=== PATIENT | female | born 1960 | race Caucasian/White ===

== ENCOUNTER 2022-09-02 15:11 | Emergency (ER) | payer OTHER ==
[~2022-09-02] VITALS: Ht 152.4 cm; Wt 83.9 kg
[2022-09-02 15:22] VITALS: BP 133/85
--- NOTE | 2022-09-02 15:28 | NUR ---
PT AMBULATED TO LOBBY. URINE COLLECTED
--- NOTE | 2022-09-02 15:30 | NUR ---
62/F WALKED IN C/O LEFT SIDED PELVIC PAIN ONSET 3 MONTHS AGO THAT GOT WORSE 2 DAYS AGO. PT DENIES FALL OR TRAUMA. PT STATES TAKING IBUPROFEN AND TYLENOL 2 DAYS AGO WITH MILD RELIEF. AAO4, AMBULATORY, VITALS STABLE PMH: ARTHRITIS
--- NOTE | 2022-09-02 16:17 | NUR ---
PT AMBULATED TO BED 5
--- NOTE | 2022-09-02 16:29 | NUR ---
Pt to CT by WC.
[2022-09-02 16:38] LABS: BILIRUBIN,URINE NEGATIVE (NEGATIVE); BLOOD, URINE TRACE-L (NEGATIVE); LEUKOCYTE ESTERASE ,URINE NEGATIVE (NEGATIVE); NITRITE, URINE NEGATIVE (NEGATIVE); UGLUCOSE NEGATIVE (NEGATIVE)
[2022-09-02 16:38] LABS: BASOPHILS % (AUTO) 0.3 % (0.0-2.0); EOSINOPHILS # (AUTO) 0.2 K/uL (0-0.4); EOSINOPHILS % (AUTO) 2.4 % (0.0-4.0); HEMATOCRIT 38.6 % (36-48); HEMOGLOBIN 12.7 g/dL (12.0-16.0); LYMPHOCYTES # (AUTO) 3.1 K/uL (2.5-16.5); LYMPHOCYTES % (AUTO) 43.1 % (20.5-51.1); MEAN CORPUSCULAR HEMOGLOBIN 29 pg (27-31); MEAN CORPUSCULAR HGB CONC 33 g/dL (33-37); MEAN CORPUSCULAR VOLUME 88.3 fL (80-94); MONOCYTES # (AUTO) 0.5 K/uL (0.8-1.0); MONOCYTES % (AUTO) 7.4 % (1.7-9.3); NEUTROPHILS # (AUTO) 3.3 K/uL (1.8-7.7); NEUTROPHILS % (AUTO) 46.8 % (42.2-75.2); PLATELET COUNT (AUTO) 347 K/uL (140-450); RED BLOOD CELL COUNT(AUTO) 4.37 MIL/uL (4.20-5.40); RED CELL DISTRIBUTION WIDTH 15.3 % (11.6-13.7); WHITE BLOOD COUNT (AUTO) 7.2 K/uL (4.8-10.8)
--- NOTE | 2022-09-02 16:40 | NUR ---
Patient returned from CT by WC
[2022-09-02 16:55] LABS: APPEARANCE,URINE CLEAR (CLEAR); COLOR,URINE YELLOW (YELLOW)
[2022-09-02 17:00] LABS: ALBUMIN 3.6 g/dL (3.4-5.0); ANION GAP 12.3 (8-16); CARBON DIOXIDE 26.7 mmol/L (21-32); CREATININE 0.7 mg/dL (0.6-1.3); TOTAL BILIRUBIN 0.3 mg/dL (0.0-1.0)
[2022-09-02 17:07] LABS: RBC,URINE 0-5 /HPF (0-5); WBC,URINE NONE SEEN /HPF (0-5)
[2022-09-02 18:19] VITALS: BP 142/73
--- NOTE | 2022-09-02 18:20 | NUR ---
Patient states left pelvic/hip pain 04/24, requesting medication. Dr. Salamanca made aware.
[2022-09-02] MEDS ORDERED: KETOROLAC 30 MG/ML VIAL IM ONE (18:25)
[2022-09-02] MEDS ORDERED: ACET-8905 PO (18:27)
[2022-09-02] MEDS ORDERED: KETOROLAC 30 MG/ML VIAL IVP ONE (18:40)
--- NOTE | 2022-09-02 19:02 | NUR ---
Patient discharged with v/s stable. Written and verbal after care instructions given and explained for Pelvic Pain (Female), Diverticulosis. Patient alert, oriented and verbalized understanding of instructions. Ambulatory with steady gait. All questions addressed prior to discharge. ID band removed. Patient advised to follow up with PMD. Rx of Hydrocodone/Acetaminophen given. Patient educated on indication of medication including possible reaction and side effects. Opportunity to ask questions provided and answered. Work note, copy of of US/CT, blood work, UA given to patient.
== END 2022-09-02 19:02 | disposition home or self-care (01) ==
LOC: MED 15:11
DX: K57.30 Diverticulosis of large intestine without perforation or abscess without bleeding (principal)
CPT/HCPCS: 36415; 74177; 76856; 80053; 81001; 83690; 85025; 96374; 99285; J1885; Q0092; Q9967

== ENCOUNTER 2022-10-31 13:45 | Emergency (ER) | payer OTHER ==
[~2022-10-31] VITALS: Ht 152.4 cm; Wt 84.5 kg
[~2022-10-31 13:45] MED LIST: ACET-8905 PO
[2022-10-31 13:47] VITALS: BP 138/58
--- NOTE | 2022-10-31 14:00 | NUR ---
DR YANEZ AT BEDSIDE FOR EVAL
[2022-10-31] MEDS ORDERED: KETOROLAC 60 MG/2 ML VIAL IM ONE (14:10)
--- NOTE | 2022-10-31 14:17 | NUR ---
62 Y/O FEMALE BIB SELF C/O DIZZINESS, RIGHT EAR PAIN RADIATING TO THE RIGHT JAW AND HEADACHE, WITH NASAL CONGESTION AND [id number]. STATES THAT SHE FEELS THOUGH THE ROOM IS SPINNING, NO CARRIES NOTED IN THE TEETH, NO SWELLING. TOOK NAPROXEN YESTERDAY WITH RELIEF PMH: ASTHMA, HDL
[2022-10-31] MEDS ORDERED: IBUP-2213 PO (14:18)
[2022-10-31] MEDS ORDERED: PSEU120T22 PO (14:18)
--- NOTE | 2022-10-31 14:41 | NUR ---
Patient discharged with v/s stable. Written and verbal after care instructions given and explained. Patient alert, oriented and verbalized understanding of instructions. Ambulatory with steady gait. All questions addressed prior to discharge. ID band removed. Patient advised to follow up with PMD. Rx of MOTRIN AND SUDAFED given. Patient educated on indication of medication including possible reaction and side effects. Opportunity to ask questions provided and answered.
== END 2022-10-31 14:41 | disposition home or self-care (01) ==
LOC: MED 13:45
DX: H92.01 Otalgia, right ear (principal); J06.9 Acute upper respiratory infection, unspecified; R42 Dizziness and giddiness
CPT/HCPCS: 96372; 99283; J1885

== ENCOUNTER 2023-05-07 10:02 | Day surgery (SDC) | payer OTHER ==
[~2023-05-07] VITALS: Ht 155.4 cm; Wt 81.6 kg
[~2023-05-07 10:02] MED LIST changes: +IBUP-2213 PO; +PSEU120T22 PO
[2023-05-07] MEDS ORDERED: fentaNYL citrate 0.05 MG/ML VIAL ONE (10:36)
[2023-05-07] MEDS ORDERED: MIDAZOLAM 2 MG/2 ML VIAL ONE (10:36)
[2023-05-07] MEDS ORDERED: LIDOCAINE 2% 100 MG/5 ML UJET TP ONE (10:36)
[2023-05-07] MEDS ORDERED: diphenhydrAMINE 50 MG/ML VIAL ONE (10:36)
[2023-05-07] MEDS ORDERED: MIDAZOLAM 2 MG/2 ML VIAL IVP ONE (12:00)
[2023-05-07] MEDS ORDERED: fentaNYL citrate 0.05 MG/ML VIAL IVP ONE (12:00)
== END 2023-05-07 11:50 | disposition home or self-care (01) ==
LOC: MDS 10:02 → MMU 10:03 → MDS 11:50
PROVIDERS: ATTEND Internal Medicine Gastroenterology
DX: Z12.11 Encounter for screening for malignant neoplasm of colon (principal); D12.0 Benign neoplasm of cecum; D12.2 Benign neoplasm of ascending colon; D12.3 Benign neoplasm of transverse colon; D12.4 Benign neoplasm of descending colon; K57.30 Diverticulosis of large intestine without perforation or abscess without bleeding; J45.909 Unspecified asthma, uncomplicated; K21.9 Gastro-esophageal reflux disease without esophagitis; E78.5 Hyperlipidemia, unspecified; Z79.82 Long term (current) use of aspirin; Z79.899 Other long term (current) drug therapy
CPT/HCPCS: 45385; J2250; J3010; J1200

== ENCOUNTER 2024-07-02 09:58 | Emergency (ER) | payer OTHER ==
[~2024-07-02] VITALS: Ht 147.3 cm; Wt 83.5 kg
[2024-07-02 10:07] VITALS: BP 144/82; PULSE 74; RESP 18; TEMP 97.5; O2SAT 97
[2024-07-02] MEDS: ONDANSETRON 4 MG/2 ML VIAL IVP ONE (11:00)
[2024-07-02] MEDS: MORPHINE SULFATE 4 MG/ML SYR IVP ONE ×2 (11:00→13:03)
[2024-07-02 11:19] LABS: BASOPHILS % (AUTO) 0.2 % (0.0-2.0); EOSINOPHILS # (AUTO) 0.2 K/uL (0-0.4); EOSINOPHILS % (AUTO) 3.4 % (0.0-4.0); HEMATOCRIT 36.8 % (36-48); LYMPHOCYTES # (AUTO) 1.6 K/uL (2.5-16.5); LYMPHOCYTES % (AUTO) 27.7 % (20.5-51.1); MEAN CORPUSCULAR HEMOGLOBIN 29 pg (27-31); MEAN CORPUSCULAR HGB CONC 33 g/dL (33-37); MEAN CORPUSCULAR VOLUME 87.3 fL (80-94); MONOCYTES # (AUTO) 0.3 K/uL (0.8-1.0); MONOCYTES % (AUTO) 5.7 % (1.7-9.3); NEUTROPHILS # (AUTO) 3.7 K/uL (1.8-7.7); PLATELET COUNT (AUTO) 319 K/uL (140-450); RED BLOOD CELL COUNT(AUTO) 4.22 MIL/uL (4.20-5.40); RED CELL DISTRIBUTION WIDTH 16.1 % (11.6-13.7); WHITE BLOOD COUNT (AUTO) 5.9 K/uL (4.8-10.8)
[2024-07-02 11:45] LABS: ALBUMIN 3.5 g/dL (3.4-5.0); CALCIUM 8.6 mg/dL (8.5-10.1); CARBON DIOXIDE 28.6 mmol/L (21-32); CREATININE 0.8 mg/dL (0.6-1.3); POTASSIUM 3.6 mmol/L (3.5-5.1); TOTAL BILIRUBIN 0.3 mg/dL (0.0-1.0); TOTAL PROTEIN, SERUM 7.6 g/dL (6.4-8.2)
[2024-07-02 11:58] LABS: APPEARANCE,URINE CLEAR (CLEAR); BILIRUBIN,URINE NEGATIVE (NEGATIVE); BLOOD, URINE NEGATIVE (NEGATIVE); COLOR,URINE YELLOW (YELLOW); LEUKOCYTE ESTERASE ,URINE NEGATIVE (NEGATIVE); NITRITE, URINE NEGATIVE (NEGATIVE); PROTEIN,URINE NEGATIVE (NEGATIVE); UGLUCOSE NEGATIVE (NEGATIVE); UROBILINOGEN,URINE 0.2 EU/dL (0.2 - 1)
[2024-07-02 16:21] VITALS: BP 132/75; PULSE 71; RESP 16; TEMP 97.5; O2SAT 93
== END 2024-07-02 16:21 | disposition home or self-care (01) ==
LOC: MED 09:58
DX: K52.89 Other specified noninfective gastroenteritis and colitis (principal); R03.0 Elevated blood-pressure reading, without diagnosis of hypertension; J45.909 Unspecified asthma, uncomplicated; E78.5 Hyperlipidemia, unspecified; M19.90 Unspecified osteoarthritis, unspecified site; Z79.899 Other long term (current) drug therapy
CPT/HCPCS: 36415; 74177; 76856; 80053; 81003; 83690; 85025; 93976; 96374; 96375; 96376; 99285; J2270; J2405; Q0092; Q9967